=== PATIENT | male | born 1945 | race Caucasian/White ===

== ENCOUNTER 2021-07-17 12:12 | Day surgery (SDC) | payer MEDICARE, OTHER ==
[2021-07-17] MEDS ORDERED: CEFAZOLIN SODIUM IN 0.9 % NACL 2 GM/100 ML BAG IV ONE (12:28)
[2021-07-17] MEDS ORDERED: BUPIVACAINE 0.5% PF 10 ML VIAL ONE ×2 (13:13)
[2021-07-17] MEDS ORDERED: LIDOCAINE 1% 50 ML MDV ONE (13:14)
[2021-07-17] MEDS ORDERED: LACTATED RINGERS 1,000 ML IV ONE (13:17)
[2021-07-17] MEDS ORDERED: fentaNYL 100 MCG/2 ML VIAL IVP PRN (13:34)
[2021-07-17] MEDS ORDERED: METOCLOPRAMIDE 10 MG/2 ML VIAL IVP PRN (13:34)
[2021-07-17] MEDS ORDERED: MORPHINE 2 MG/ML CARPUJECT IVP PRN (13:34)
[2021-07-17] MEDS ORDERED: ePHEDrine 50 MG/ML VIAL IVP PRN (13:34)
[2021-07-17] MEDS ORDERED: ATROPINE ABBOJECT 1 MG/10 ML SYRINGE IVP PRN (13:34)
[2021-07-17] MEDS ORDERED: HYDROmorphone 0.5 MG/0.5 ML SYRINGE IVP PRN (13:34)
[2021-07-17] MEDS ORDERED: NALOXONE 0.4 MG/ML VIAL IVP PRN (13:34)
[2021-07-17] MEDS ORDERED: ONDANSETRON 4 MG/2 ML VIAL IVP PRN (13:34)
--- NOTE | 2021-07-17 13:34 | ANESTHESIA ---
Pre-Anesthesia VS, & Labs - Diagnosis Excision of 10 cm diameter painful cyst of back - Procedure Excision of cyst on back, 10 cm Vital Signs: Temp Pulse Resp BP Pulse Ox 36.4 C L 74 18 143/79 H 97 07/17/21 12:43 07/17/21 12:43 07/17/21 12:43 07/17/21 12:43 07/17/21 12:43 Height: 6 ft 3 in Weight (kg): 109.5 kg Body Mass Index: 30.2 BMI Classification: Obese - NPO >8 hours - Lab Results Lab results reviewed: Yes Home Medications and Allergies Home Medications: Ambulatory Orders Aspirin EC [Ecotrin] 81 mg PO DAILY 07/16/21 Chlorthalidone 25 mg PO DAILY 07/16/21 Cholecalciferol (Vitamin D3) [Vitamin D3] 5,000 unit PO DAILY 07/16/21 Cyanocobalamin (Vitamin B-12) [Vitamin B-12] 5,000 mcg PO DAILY 07/16/21 Galantamine HBr [Razadyne ER] 24 mg PO DAILY 07/16/21 Memantine HCl [Namenda] 10 mg PO BID 07/16/21 Potassium Chloride [Klor-Con] 20 meq PO BID 07/16/21 Simvastatin [Zocor] 10 mg PO DAILY 07/16/21 Aspirin EC [Ecotrin] 81 mg PO DAILY 07/16/21 Chlorthalidone 25 mg PO DAILY 07/16/21 Cholecalciferol (Vitamin D3) [Vitamin D3] 5,000 unit PO DAILY 07/16/21 Cyanocobalamin (Vitamin B-12) [Vitamin B-12] 5,000 mcg PO DAILY 07/16/21 Galantamine HBr [Razadyne ER] 24 mg PO DAILY 07/16/21 Memantine HCl [Namenda] 10 mg PO BID 07/16/21 Potassium Chloride [Klor-Con] 20 meq PO BID 07/16/21 Simvastatin [Zocor] 10 mg PO DAILY 07/16/21 Allergies/Adverse Reactions: Allergies Allergy/AdvReac Type Severity Reaction Status Date / Time atropine Allergy Unknown Verified 07/16/21 09:39 Anes History & Medical History - Anesthetic History Anesthesia Complications: reports: No previous complications Family history of Anesthesia Complications: Denies Family history of Malignant Hyperthermia: Denies - Medical History Cardiovascular: reports: Hypertension, High cholesterol Pulmonary: reports: None Gastrointestinal: reports: None Urinary: reports: None Neuro: reports: Alzhiemer's, Dementia Musculoskeletal: reports: None Endocrine/Autoimmune: reports: None Skin: reports: None - Surgical History General: reports: Colonoscopy Eyes Ears Nose Throat (EENT): reports: Tonsil/Adenoidectomy, Other Orthopedic: reports: Rotator cuff repair Exam General: Alert, Cooperative, No acute distress Dental: WNL Mouth Openin Fingerbreadth Neck Mobility: Reduced Mallampati classification: III, IV (pt unable to follow commands to assess well, Demented) Respiratory: Lungs clear, Normal breath sounds, No respiratory distress, No accessory muscle use Cardiovascular: Regular rate, Normal S1, Normal S2, No murmurs Plan Anesthesia Type: General Consent for Procedure(s) Verified and Reviewed: Yes Code Status: Attempt Resuscitation ASA classification: 3-Severe systemic disease Is this case an emergency?: No
[2021-07-17] MEDS ORDERED: LIDOCAINE-MPF 2% 5 ML VIAL ONE (13:45)
[2021-07-17] MEDS ORDERED: PROPOFOL 200 MG/20 ML VIAL IVP ONE (13:45)
[2021-07-17] MEDS ORDERED: DEXAMETHASONE 4 MG/ML VIAL ONE (13:45)
[2021-07-17] MEDS ORDERED: LACTATED RINGERS 1,000 ML IV SCH (14:00)
[2021-07-17] MEDS ORDERED: BUPIVACAINE 0.5% PF 30 ML VIAL SUBQ ONE ×2 (14:39→15:02)
[2021-07-17] MEDS ORDERED: SUGAMMADEX 200 MG/2 ML VIAL IVP ONE (15:07)
--- NOTE | 2021-07-17 15:29 | OPERATIVE REPORT ---
Operative Report - General Procedure Date: 07/17/21 Planned Procedure: Excision of highly symptomatic large epidermal inclusion cyst/sebaceous cyst Pre-Op Diagnosis: Highly symptomatic large epidermal inclusion cyst/sebaceous cyst Procedure Performed: Excision and drainage of infected highly symptomatic ruptured large epidermal inclusion cyst/sebaceous cyst Post Op Diagnosis: Infected highly symptomatic ruptured large epidermal inclusion cyst/sebaceo - Procedure Note Primary Surgeon: Damaso Prado MD Anesthesia Provider: Pieter Sow CRNA Anesthesia Technique: General ET tube, Local (30 mL 1/2% marcaine) IV Fluids (mL): 1,000 Estimated Blood Loss (mL): 150 Drain/Tube Type: Other (19 Fr Oj drain) Indications: Highly symptomatic large epidermal inclusion cyst/sebaceous cyst Findings: Infected highly symptomatic ruptured large epidermal inclusion cyst/sebaceous cyst Complications: None. - Other Other Information/Narrative: After verbal and written informed consent was obtained detailing the operation, the alternatives the operation including no operation, risks of infection, bleeding requiring transfusion with its risks, nerve injury, and and after I met with the patient confirming the surgery and the site of surgery, the patient was brought to the operative suite and placed supine on the operating table. Great care was taken to avoid pressure points to prevent pressure necrosis or nerve injury. Monitoring devices were applied along with TEDs and pneumatic compression stockings (to prevent DVT). The patient received preoperative antibiotics for surgical prophylaxis. Pieter Sow CRNA sedated and anesthetized the patient for the entire procedure. The patient was then placed prone again taking care to avoid pressure pointsThe patient was prepped and draped in the usual sterile manner. With the patient draped my initials were clearly visible. A "time in" then confirmed that the patient was identified with 3 identifiers (name, date, and medical record number), the history and physical was updated and in the chart, the signed consent confirming the procedure was in the chart, the patient was in the correct position, the aforementioned prophylactic measures were in place or given, we had the correct personnel and equipment to complete the procedure and that anesthesia and the surgical team were given an opportunity to express any concerns. With the agreement of everyone in the room we proceeded with the operation. At the time of the operation the induration measured 10 cm in transverse measurement and 14 cm up and down. I placed a 6 cm transverse incision at the area where this was pointing and dissection down to the collection revealed approximately 20 mL of bright green pus. Once the cavity was entered there was pus and blood mixed and I estimate that approximately 150 mL of blood was lost during this case. The cyst had completely ruptured and parts of the wall when encountered were removed. The induration and infection had infiltrated into the underlying muscle. There was still a significant amount of induration to the surrounding tissues but again this was not infection but rather induration due to the infection. Hemostasis was obtained using Bovie electrocautery. Where the cyst wall had become adherent to the surrounding tissue I excised this using Bovie electrocautery. When I felt confident that I had removed as much wall as I could identify and there was adequate hemostasis a separate stab incision was made inferiorly and through this incision was placed a 19 [place] Oj drain which was secured to the skin using a 3-0 nylon suture which was Santhosh sandaled about the drain. The drain was then curled in this rather large opening and cut to fit. The skin incision was approximated with 2 2-0 Nylon interrupted mattress sutures. The sutures were purposely placed somewhat wide apart to allow for drainage. The entire area was infiltrated using 30 mL of half percent Marcaine for pain control. Absorbent dressings were taped in place as well as a drain sponge. At this point a timeout was performed that confirmed that all counts were correct x2, the procedure that was performed, the blood loss, the IV fluids administered, the patient's condition, and any concerns of the operating team had. Having tolerated the procedure well, the patient was taken recovery room in good and stable condition. The plan is for outpatient discharge when the patient is adequately recovered. This document was created in part using voice recognition technology. Because of the inherent limitations of the system, occasional same sounding word substitutions and grammatical errors do occur and persist despite proofreading. Please read this document for content.
--- NOTE | 2021-07-17 15:30 | ANESTHESIA POST OP EVALUATION ---
Anesthesia Post Eval - Post Anesthesia Eval Vitals: Last Vital Signs Temp 36.5 C 07/17/21 15:25 Pulse 83 07/17/21 15:25 Resp 14 07/17/21 15:25 BP 151/76 H 07/17/21 15:25 Pulse Ox 100 07/17/21 15:25 CV Function Including HR & BP: Stable Pain Control: Satisfactory Nausea & Vomiting: Negative Mental Status: Baseline Respiratory Status: Airway Patent Hydration Status: Satisfactory Anesthesia Complications: None
[2021-07-17] MEDS ORDERED: LACTATED RINGERS 600 ML IV ONE (15:34)
[2021-07-17] MEDS ORDERED: HYDROcod/ACETAM 5/325 MG TABLET PO PRN (15:47)
[2021-07-17 16:36] VITALS: BP 157/98
== END 2021-07-17 12:13 | disposition home or self-care (01) ==
LOC: SDS 12:12
PROVIDERS: ATTEND Surgery
DX: L72.0 Epidermal cyst (principal); E66.9 Obesity, unspecified; Z68.30 Body mass index [BMI] 30.0-30.9, adult; G30.9 Alzheimer's disease, unspecified; F02.80 Dementia in other diseases classified elsewhere, unspecified severity, without behavioral disturbance, psychotic disturbance, mood disturbance, and anxiety; L72.3 Sebaceous cyst
CPT/HCPCS: 11406; J0690; J7120